=== PATIENT | male | born 1950 | race Caucasian/White ===

== ENCOUNTER 2024-07-04 06:08 | Day surgery (SDC) | payer OTHER, SELFPAY ==
[2024-06-17 11:11] LABS: Hematocrit 42.4 % (39.0-52.0); Hemoglobin 14.4 g/dL (13.0-18.0); Mean Corpuscular Hgb 30.1 pg (27.0-31.0); Mean Corpuscular Volume 88.5 fL (80.0-94.0); Mean Platelet Volume 10.7 fL (7.4-10.4); Platelet Count 201 10^3/uL (130-400); Red Blood Cell Count 4.79 10^6/uL (4.70-6.10); Red Cell Dist. Width 12.4 % (11.5-14.5)
[2024-06-17 11:35] LABS: ALT (SGPT) 21 U/L (0-50); AST (SGOT) 25 U/L (17-59); Alkaline Phosphatase 125 U/L (38-126); Blood Urea Nitrogen 24 mg/dl (9-20); Carbon Dioxide 28 mmol/L (22-30); Chloride 102 mmol/L (98-107); Glucose 102 mg/dl (70-99); Potassium 4.3 mmol/L (3.5-5.1); Sodium 138 mmol/L (135-145); Total Bilirubin 0.7 mg/dl (0.2-1.3); Total Protein 6.7 g/dl (6.3-8.2); eGFR > 60.00
[2024-06-17 12:02] LABS: Glycohemoglobin (HgbA1c) 5.6 % (4.0-5.6)
[2024-06-17 13:49] VITALS: BMI 36.5
--- NOTE | 2024-06-20 10:45 | VNURNOTE ---
Patient is scheduled for an elective R THR on 07/04/24- he is a same day patient with Dr Araya. Spoke with patient prior to surgery. Introduced role of [facility] Liaison. Patient reports that he lives with his in a MULTI story home.
There are 5 steps to enter and a flight of steps to the second floor.
There is a powder room on the entry tech. He has a cane and rolling walker.
PCP is Dr Moncada.
Discussed [facility] joint protocol and post surgical plans.
Reviewed that he will have [facility] services initially and will then start outpatient PT.
Patient selects VN for his home care needs and will go to [facility] for outpatient PT. Scheduled for 07/07.
Patient is in agreement with plan and states that his will be home with him. His neighbor will pick him up day of surgery. Advised to bring RW with him day of surgery. [facility].
Plan: [facility] per [facility] joint protocol 07/04 then outpt PT on 07/07
[2024-06-23 13:34] VITALS: BMI 36.5
[2024-07-04] VITALS (13 sets, daily range): BP systolic 111–168; BP diastolic 68–103; PULSE 97; O2SAT 99; BMI 37.9
[2024-07-04] MEDS: TYLENOL 650 MG PO (07:48)
[2024-07-04] MEDS: CELEBREX 200 MG PO (07:48)
[2024-07-04] MEDS: BACTROBAN NASAL 1 GRAM NASAL (07:56)
[2024-07-04] MEDS: NORMOSOL-R/PLASMALYTE-A 1000 IV (08:17)
[2024-07-04] MEDS: ANCEF 5 IV (13:35)
== END 2024-07-04 14:12 | disposition home health service (06) ==
LOC: SDS 06:08
PROVIDERS: ATTENDING PHYSICIAN Specialist; FAMILY PHYSICIAN Family Medicine
DX: M16.11 Unilateral primary osteoarthritis, right hip (principal); E66.9 Obesity, unspecified; E53.8 Deficiency of other specified B group vitamins; G47.33 Obstructive sleep apnea (adult) (pediatric); Z68.36 Body mass index [BMI] 36.0-36.9, adult; Z87.891 Personal history of nicotine dependence; Z88.5 Allergy status to narcotic agent
CPT/HCPCS: 27130; 73502; 36415; 80053; 83036; 85027; 87070; 93005; 97162; 97530; C1713; C1776

== ENCOUNTER 2024-11-03 19:10 | Observation (INO) | payer OTHER, SELFPAY ==
[2024-11-03 13:43] VITALS: BP 160/90
[2024-11-03 14:10] VITALS: BP 152/83
[2024-11-03 14:55] LABS: % Basophils 0.2 % (0-2); % Eosinophils 2.9 % (0-6); % Immature Granulocytes 0.1 % (0-0.5); % Lymphocytes 21.4 % (20.5-51.1); % Monocytes 7.9 % (1.7-9.3); % Neutrophils 67.5 % (42.2-75.2); Absolute Eosinophils 0.2 10^3/uL (0-0.7); Absolute Lymphocytes 1.8 10^3/uL (1.2-3.4); Absolute Monocytes 0.7 10^3/uL (0.1-0.6); Absolute Neutrophils 5.7 10^3/uL (1.4-6.5); Hematocrit 38.8 % (39.0-52.0); Hemoglobin 13.5 g/dL (13.0-18.0); Mean Corp Hgb Conc. 34.8 g/dL (33.0-37.0); Mean Corpuscular Volume 83.4 fL (80.0-94.0); Mean Platelet Volume 10.5 fL (7.4-10.4); Nucleated Red Blood Cells % 0 % (-); Platelet Count 188 10^3/uL (130-400); Red Blood Cell Count 4.65 10^6/uL (4.70-6.10); Red Cell Dist. Width 12.3 % (11.5-14.5); White Blood Cell Count 8.4 10^3/uL (4.8-10.8)
[2024-11-03 15:00] VITALS: BP 133/78
[2024-11-03 15:27] LABS: ALT (SGPT) 15 U/L (0-50); AST (SGOT) 21 U/L (17-59); Albumin 3.7 g/dl (3.5-5.0); Alkaline Phosphatase 105 U/L (38-126); Blood Urea Nitrogen 20 mg/dl (9-20); Calcium 8.9 mg/dl (8.4-10.2); Carbon Dioxide 24 mmol/L (22-30); Chloride 109 mmol/L (98-107); Glucose 163 mg/dl (70-99); Potassium 4.2 mmol/L (3.5-5.1); Sodium 141 mmol/L (135-145); Total Bilirubin 0.6 mg/dl (0.2-1.3); Total Protein 6.3 g/dl (6.3-8.2); eGFR > 60.00
[2024-11-03 16:00] VITALS: BP 150/78
--- NOTE | 2024-11-03 16:12 | ED.CVA ---
History of Present Illness
General
Chief Complaint: CVA/TIA Symptoms
Source: patient and spouse
Exam Limitations: none
Time Seen by Provider: 11/03/24 14:49
Nursing documentation reviewed up to this point in time: agreed with
Onset of Stroke Symptoms
Onset of symptoms known: Yes
Date of onset of symptoms: 10/31/24
History of Present Illness
History of Present Illness:
74-year-old male with history of right hip replacement 07/19, no other past medical history, takes no meds, he is here for episode of weakness left side.
4 days ago he was pulling weeds with his left arm. At night he went to bed feeling fine, he awoke at 1 AM feeling numbness from his left shoulder to his fingers and down his left side to and including his toes. He fell back asleep.
Next morning 7 AM he could not move in bed due to weakness and numbness of his entire left side, he had a shoe made to the right side of the bed to get up. He was able to walk downstairs dragging his left foot due to weakness in his left leg
and used his cane that he had leftover from his right hip surgery. He states when he lifted the cane with his left hand, it felt like it weighed 20 pounds. He states he also 'could not walk and could not lift my left foot up.'
Half hour later at 7:30 AM, all of his symptoms suddenly resolved.
2 days ago at 1 AM he had a similar episode, he got out of bed to go to the bathroom had trouble walking to the left leg and foot and arm weakness, had to hold onto things to walk and then after about 10 minutes symptoms suddenly resolved. He
went back to sleep
Yesterday he was fine all day.
He attributed his symptoms to his body 're aligning and learning to walk normally' after his hip surgery.
Today is asymptomatic but he 'Googled' his symptoms and 'I found the word stroke' and that's what prompted him to come here.
Past History
Past History
ED Past Medical History: None
ED Past Surgical History: Urological
Social History
Tobacco: Non-smoker
Alcohol: Occasional
Personal:
Living: with family
Employment: Employed
Review of Systems
Review of Systems
Allergies reviewed?: Yes
All Other Systems: ROS reviewed and negative except as documented in HPI and ROS
Constitutional: Denies fever or fatigue
Respiratory: Denies trouble breathing
Cardiac: Denies chest pain or syncope
ABD/GI: Denies abdominal pain, nausea, vomiting or diarrhea
: Denies dysuria, incontinence or difficulty voiding
Musculoskeletal: Reports no symptoms; Denies edema
Skin: Reports no symptoms
Neurological: Reports other (As noted in HPI, asymptomatic at this time.)
Phy Exam
Physical Exam
Physical Exam:
GENERAL: No acute distress. A&Ox3.
CONSTITUTIONAL: Afebrile.
EYES: clear, conjunctivae normal
ENMT: moist mucus membranes, Pharynx nl
RESPIRATORY: Regular respirations, nonlabored, lungs clear.
CARDIOVASCULAR: Regular rate and rhythm, no murmurs, no rubs.
GI: Soft, nontender, normal BS
MUSCULOSKELETAL: Moves with ease. Well perfused.
SKIN: Warm, dry, pink
PSYCH: Normal mood and affect. Well kept, interactive and appropriate
NEUROLOGIC: Awake, alert and oriented. Speech clear. Cranial nerves II through XII intact. Cerebellum intact. No focal neurological deficits
Scores
NIH Stroke Score
Level of Consciousness: 0 - Alert
LOC Questions: 0-Answers both correctly
LOC Commands: 0-Performs both correctly
Best Horizontal Gaze: 0-Normal
Visual Weber: 0=Normal, no visual loss
Facial Palsy: 0=Normal, symmetrical
Motor - Right Arm: 0=No drift 10 seconds
Motor - Left Arm: 0=No drift 10 seconds
Motor - Right Le-No drift 5 seconds
Motor - Left Le-No drift 5 seconds
Limb Ataxia: 0-Absent
Sensation: 0-Normal
Best Language: 0-No aphasia
Dysarthria: 0-Normal
Extinction and Inattention: 0-No abnormality
NIH Total Score:: 0
Course
Orders/Labs/Results
Orders:
Orders
11/03/24 13:47
EKG [Electrocardiogram (*1)] Urgent
Reason for Study: Tachycardia
EKG- Treatment ONCE
11/03/24 14:47
CMP [Comprehensive Metabolic Panel] Urgent
Complete Blood Count/With Diff Urgent
11/03/24 14:51
CT Head W/o Iv Contrast Urgent
Comment:
Reason For Exam: numb L arm and leg past 3 days
Abnormal Lab Results
11/03/24
14:47
RBC 4.65 L 10^6/uL
(4.70-6.10)
Hct 38.8 L %
(39.0-52.0)
MPV 10.5 H fL
(7.4-10.4)
Absolute Monos (auto) 0.7 H 10^3/uL
(0.1-0.6)
Chloride 109 H mmol/L
(98-107)
Glucose 163 H mg/dl
(70-99)
11/03/24 14:47
11/03/24 14:47
Vital Signs
Initial and Last Documented VS:
Initial Vital Signs
Temp Pulse Resp BP Pulse Ox
98.0 F 111 20 160/90 97
11/03/24 13:43 11/03/24 13:43 11/03/24 13:43 11/03/24 13:43 11/03/24 13:43
Last Documented Vital Signs
Temp Pulse Resp BP Pulse Ox
98.0 F 91 19 150/78 97
11/03/24 13:43 11/03/24 17:45 11/03/24 17:45 11/03/24 16:00 11/03/24 17:45
Websphere Administrator consulted with Physician
Websphere Administrator consulted with physician?: Yes
Name of Physician Consulted: Vincenzo
MDM/Problems Addressed
Differential Diagnosis Includes:
CVA, TIA,
MDM/Problems Addressed:
74-year-old male with history of right hip replacement 07/19, no other past medical history, takes no meds, he is here for episode of weakness left side.
4 days ago he was pulling weeds with his left arm. At night he went to bed feeling fine, he awoke at 1 AM feeling numbness from his left shoulder to his fingers and down his left side to and including his toes. He fell back asleep.
Next morning 7 AM he could not move in bed due to weakness and numbness of his entire left side, he had a shoe made to the right side of the bed to get up. He was able to walk downstairs dragging his left foot due to weakness in his left leg
and used his cane that he had leftover from his right hip surgery. He states when he lifted the cane with his left hand, it felt like it weighed 20 pounds. He states he also 'could not walk and could not lift my left foot up.'
Half hour later at 7:30 AM, all of his symptoms suddenly resolved.
2 days ago at 1 AM he had a similar episode, he got out of bed to go to the bathroom had trouble walking to the left leg and foot and arm weakness, had to hold onto things to walk and then after about 10 minutes symptoms suddenly resolved. He
went back to sleep
Yesterday he was fine all day.
He attributed his symptoms to his body 're aligning and learning to walk normally' after his hip surgery.
Today is asymptomatic but he 'Googled' his symptoms and 'I found the word stroke' and that's what prompted him to come here.
4:00 PM:
CBC unremarkable
CMP unremarkable head
CT: Radiology report read: No acute intracranial abnormality.
Case discussed with Dr. Loya. Concern for multiple TIAs plan admit: Patient and agree with plan, hospitalist notified of admission
*Critical Care Note
Total Time (30-74mins, 75-104mins- exclusive of procedures): Not Applicable
ED Attending Note
-
Portions of this chart may have been created with voice recognition software.� Occasional wrong word or��sound alike� substitutions may have occurred due to the inherent limitations of voice recognition software.
Discharge Plan
Departure
Patient Disposition: Admit
Date of Disposition: 11/03/24
Time of Disposition: 16:26
Admit to: Med/Surg
Presentation/result/management discussed w/ accepting MD/DO: Hospitalist
Condition: Good
Discharge Problem:
Brain TIA
Prescriptions:
No Action
aspirin 81 mg Tablet
81 mg PO DAILY
Patient Comments:
occasionally uses
Referrals:
Delroy Stallworth MD [Family Provider, Family Practice]
Interventions
Interventions:
*Risk Screen - Suicide Last Done: 11/03/24 13:43
*General Assessment Last Done: 11/03/24 13:43
*Neglect/Abuse Screening Last Done: 11/03/24 13:43
*ED- Fall Risk Assessment Last Done: 11/03/24 14:34
*ED COVID-19 Vaccine History Last Done: 11/03/24 14:34
ED- Pulmonary Assessment Last Done: 11/03/24 14:31
ED- Neurological Assessment Last Done: 11/03/24 14:31
ED- Cardiac Assessment Last Done: 11/03/24 14:31
Discharge Date and Time
Print Language: CITIZEN OF [place]
--- NOTE | 2024-11-03 17:18 | W.PN.UPDATE ---
Update Note
Progress Note Update
I personally performed a history and physical exam of the patient and discussed management with the resident. I reviewed the resident's note and agree with the documented findings and plan of care HPI/CC.
Patient is a 74-year-old male with past medical history of osteoarthritis status post right THR, obesity, former smoker came to ER for having left-sided upper extremity and lower extremity weakness and numbness. Symptoms first happen 3 days back
when patient woke up wgith left-sided arm and leg weakness and numbness. In the morning apparently patient weakness persisted and was having difficult time getting around. Denied any speech changes/facial droopiness or slurring of words. This
resolved spontaneously. Apparently 2 days back patient had somewhat of similar episode while walking to the bathroom and resolved by itself as well. Patient presented to the ER for further evaluation for concern of possible TIA.
Patient denies of having any previous history of TIA/stroke. Patient's spouse started patient on baby aspirin and has been taking it for last 3 days. Patient have some history of palpitation with activity although denies of feeling irregular beats
at rest. Has been former smoker. Have not seen family physician and not been diagnosed for hyperlipidemia/prediabetes.
HEENT: No pallor, cyanosis, or jaundice. Throat clear.
NECK: Supple. No JVD.
RESPIRATORY: Lungs clear to auscultation.
CVS: S1, S2 normal. RRR. No murmur, rub or gallop.
ABDOMEN: Soft, non-tender. No distension. BS+/normal.
EXTREMITIES: No peripheral cyanosis or edema.
SHIPPING CLERK CRATING: AOx3. No focal deficits.
1. TIA x 2
- 2 episodes of TIA based on clinical presentation
- CT head neg for any acute issues
- Ordered baby aspirin, maintain start atorvastatin 40 mg daily as
- Check lipid profile/hemoglobin A1c-
- check MRI brain without contrast , MRA head and neck
- Will require TTE with bubble study to rule out ASD
- Monitor on telemetry, will benefit with ambulatory rhythm monitoring as well
- Neurology consult
2. Obesity
- Affects all aspects of care, weight loss recommended
DVT PPX -scd
Full code
Total time spent : 77 mins
I personally saw and examined the patient.
I have reviewed all diagnostic interpretations and treatment plans as written.
Time includes patient management by me, time spent at the patients bedside, time to review lab and imaging results, discussing patient care, documentation in the medical record, and time spent with the family or caregiver and discussing care plan
with RN/Consultants.
--- NOTE | 2024-11-03 18:44 | HPS.HSE ---
Family Physician
-
Family Physician: Delroy Stallworth
Cardiologsit: Dr. Donald
Chief Complaint
-
TIA SX
History of Present Illness
Gabe Larose is a 74-year-old male with a past medical history of osteoarthritis status post right total hip replacement, obesity, vitamin B12 deficiency, former tobacco use (approximately 40-iwuq-rjmx history, quit 35 years ago) who presented to
the emergency department for transient left upper and left lower extremity weakness. Patient states that 3 days ago, at around 0100, the patient woke from sleep and noticed that his left upper and left lower extremity were weak. Patient states
that this episode lasted approximately 15 minutes. After resolution of symptoms, patient went back to sleep and then woke up the next morning without any symptoms. Patient had a normal day, and then the following night, patient woke up at around
the same time to go to the bathroom. Patient was able to get out of bed, walk to the bathroom, go to the bathroom, walk back from the bathroom, and get back in bed. However, at this time the patient started to feel the same symptoms that he felt
the night before. This time the symptoms lasted approximately 5 minutes. The symptoms went away and then the patient return to sleep. The next morning the patient woke up without any symptoms, and had a normal day again. Yesterday and today,
patient had no symptoms. It was only after Googling the symptoms that the patient decided that he should come to the emergency department.
Patient endorses working in the garden the day before the first episode, pulling weeds with his left arm and using his left leg for leverage since he could not use the right side of his body secondary to his recent right total hip replacement.
Patient denied any neck pain, back pain, radiculopathy preceding these last few days. During the events, patient only noticed a weakness from the shoulder down to the hand and the hip down to the feet. Patient states that he was able to move his
fingers and toes during these episodes. Patient denied having any numbness or tingling of the affected extremities during these episodes. Patient also denies any chest pain, shortness of breath during or preceding these episodes. Patient denies
any recent vision changes or sudden onset loss of vision. Patient notes a history of subjective palpitations that are chronic. Patient also notes that he will occasionally get dizzy for the past few months, however this symptom is not reliably
related to exertion, movement, or position changes. Patient attributes this to his allergies. Patient's is at bedside and denies any personality changes, facial droop, slurred speech during the above-mentioned episodes.
Medical History
Past Medical History
Past Medical History: Reports Other
Additional Past Medical History:
Osteoarthritis, obesity, tobacco use
Past Surgical History: Reports Other
Additional Past Surgical History:
Right total hip replacement, urologic surgery
Social History
Tobacco: Former Smoker (Started at age 11, quit 35 years ago at age 39, 1 to 2 pack/day during this time)
Alcohol: None
Drug: None
Personal:
Living: With Family
Employment: Retired
Family History
Family History: Not pertinent
Allergies / Home Medications
Allergies reflects when Allergies were last updated in [facility].
Home Medications with original date entered in [facility]
Allergy/Medication List:
Allergies: Codeine�drowsy
ASA 81 mg, started 3 days ago after symptoms at request of
Fluticasone as needed for allergy
Review of Systems
-
History Source: Patient
A 12 point ROS was completed and negative except as noted: Yes
Physical Exam
Vital Signs
Vital Signs
Temp Pulse Resp BP Pulse Ox
98.0 F 83 19 150/78 96
11/03/24 13:43 11/03/24 18:30 11/03/24 17:45 11/03/24 16:00 11/03/24 18:30
Physical Exam
General: Well Developed, Well Nourished, No Apparent Distress, Comfortable and Conversant
HEENT: NormoCephalic, Anicteric, Atraumatic, PERRLA and Other (Extraocular motions intact, cranial nerves II through XII grossly intact)
Respiratory: Clear and Non Labored Respirations; No Wheezes, Rales, Rhonchi or Crackles
Cardiac: S1/S2 and Regular Rhythm; No Murmur
GI: Soft
Musculoskeletal: No Clubbing, No Cyanosis and No Edema
Skin: Warm and Dry
Neuro: Awake, Alert, Oriented, No Motor Deficits, Cranial Nerves Intact and No Sensory Deficits; No Slurred Speech, Facial Droop or Tremors
Psych: Calm
Laboratory Results
-
11/03/24 14:47
11/03/24 14:47
Laboratory Results
Total Bilirubin 0.6 mg/dl (0.2-1.3) 11/03/24 14:47
AST 21 U/L (17-59) 11/03/24 14:47
ALT 15 U/L (0-50) 11/03/24 14:47
Alkaline Phosphatase 105 U/L (38-126) 11/03/24 14:47
Data Reviewed
-
CT Scan: Image Personally Visualized and interpreted, Report Reviewed by me and Discussed with Patient
Lab Data: Labs Reviewed by me and Discussed with Patient
Impression/Plan
-
1. TIA x 2
- 2 episodes of TIA 3 days ago and 2 days ago, based on history
- CT Head w/o contrast (11/03) - ED: No acute intracranial abnormality noted.
- Start ASA 81 mg, Lipitor 40mg daily
- Check lipid profile/hemoglobin A1c
- Check MRI brain without contrast , MRA head and neck
- TTE w/ Bubble Study
- Monitor on telemetry, will benefit with ambulatory rhythm monitoring as well
- Neurology consult
- BP Control (see below)
- NIH Stroke Scale q6h
2. Obesity
- Affects all aspects of care, weight loss recommended
3. Hypertension
- Start Losartan 25mg PO daily
- Labetalol IV PRN SBP >160
DVT PPX -scd
Full code
[2024-11-03 20:10] VITALS: BP 152/89; BMI 37.5
--- NOTE | 2024-11-03 20:30 | PTCARENOTE ---
Pt transported from ED to 3W via wheelchair. Pt independent from wheelchair to bed. AAOX3, vitals stable, pt on TELE monitor #9. Oriented to room, call biggs within reach. Pleasant and cooperative.
[2024-11-03] MEDS: LIPITOR 40 MG PO (21:22)
[2024-11-03 23:14] VITALS: BP 135/94
[2024-11-04 03:30] VITALS: BP 134/79
[2024-11-04 05:49] LABS: Hematocrit 39.1 % (39.0-52.0); Hemoglobin 13.6 g/dL (13.0-18.0); Mean Corp Hgb Conc. 34.8 g/dL (33.0-37.0); Mean Corpuscular Hgb 29.2 pg (27.0-31.0); Mean Corpuscular Volume 84.1 fL (80.0-94.0); Mean Platelet Volume 10.2 fL (7.4-10.4); Platelet Count 183 10^3/uL (130-400); Red Blood Cell Count 4.65 10^6/uL (4.70-6.10); Red Cell Dist. Width 12.2 % (11.5-14.5); White Blood Cell Count 8.2 10^3/uL (4.8-10.8)
[2024-11-04 06:19] LABS: Blood Urea Nitrogen 17 mg/dl (9-20); Carbon Dioxide 27 mmol/L (22-30); Chloride 110 mmol/L (98-107); Estimated Creatinine Clearance 72 ml/min; Glucose 107 mg/dl (70-99); HDL Cholesterol 38 mg/dl; LDL Cholesterol, Calculated 80 mg/dl; Potassium 4.3 mmol/L (3.5-5.1); Sodium 142 mmol/L (135-145); Total Cholesterol 138 mg/dl (50-199); Triglyceride 100 mg/dl (10-149); Very Low Density Lipoprotein 20 mg/dl (0-30); eGFR > 60.00
[2024-11-04 07:00] VITALS: BP 152/84
--- NOTE | 2024-11-04 07:22 | W.PN.HOSP.TC ---
Today's Communication/Plan
-
.
Assessment / Plan
Assessment / Plan
1. TIA x 2
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
- CT Head w/o contrast (11/03) - ED: No acute intracranial abnormality noted.
- MRI/MRA unable to be done 2/2 patient claustrophobia
- CTA Head:
- CTA Neck:
- Start ASA 81 mg, Lipitor 40mg daily
- TG 100 TC 138 LDL 80 VLDL 20 HDL 38
- Hemoglobin A1c = 5.9
- Per neuro and rads, TTE w/ Bubble Study not to be performed in age > 60
- Monitor on telemetry, will benefit with ambulatory rhythm monitoring as well
- Appreciate Neuro recommendations
- BP Control (see below)
- NIHSS 0 throughout admission
2. Obesity
- Affects all aspects of care, weight loss recommended
3. Hypertension
- Start Losartan 25mg PO daily
- Labetalol IV PRN SBP >160
DVT PPX -scd
Full code
Anticipated Discharge: Today
Subjective/Interval History
-
Date of Service: November 04, 2024
Patient seen and examined while resting comfortably in bed, just gotten up from sleep this AM. States that he slept well and did not experience any events over night. Feeling well and no acute complaints.
Objective Data
-
Labs:
Laboratory Results
11/04/24
05:27
WBC 8.2
Hgb 13.6
Hct 39.1
Plt Count 183
Sodium 142
Potassium 4.3
Chloride 110 H
Carbon Dioxide 27
BUN 17
Creatinine 1.0
Glucose 107 H
Calcium 9.0
Vital Signs:
Vital Signs
Temp Pulse Resp BP Pulse Ox
97.6 F 74 16 134/79 97
11/04/24 03:30 11/04/24 03:30 11/04/24 03:30 11/04/24 03:30 11/04/24 03:30
Review of Systems
-
History Source: Patient
Constitutional: Reports No Symptoms
Respiratory: Reports No Symptoms
Cardiac: Reports No Symptoms
Neuro: Reports No Symptoms
Physical Exam
-
General: Well Developed, Well Nourished, No Apparent Distress, Comfortable and Conversant
HEENT: Normocephalic and Atraumatic
Respiratory: Clear to Auscultation; Negative Wheezes, Rales or Rhonchi
Cardiac: Regular Rhythm and S1/S2
GI: Soft
Musculoskeletal: No Clubbing, No Cyanosis and No Edema
Skin: Warm and Dry
Neuro: Awake, Alert, Oriented, No Motor Deficits, Nonfocal/Grossly Intact and Central Nerve's Intact; Negative Slurred Speech or Facial Droop
Psych: Calm
Data Reviewed
-
Labs: Labs Reviewed by me and Discussed with Patient
[2024-11-04] MEDS: LOW STRENGTH ASPIRIN 81 MG PO (08:27)
--- NOTE | 2024-11-04 08:41 | CON.NEURO4 ---
Addendum entered and electronically signed by Iban Hankins MD 11/04/24 12:41:
Studies reviewed.
I have personally examined the patient. I reviewed and agree with the REGULATED PROGRAM MANAGER's Note.
My addenda:
Awake, alert, interactive. No acute distress.
Speech intact.
Follows 2-step requests w/o difficulty. No tremor.
Extra-ocular movements grossly intact.
Facial movements full and symmetric. Hearing intact to normal conversational volume.
Normal UE movements bilaterally.
Neck: full ROM.
Chest: no dyspnea
Heart: no JVD
Ext: (-) Clubbing, (-) Cyanosis, (-) Edema
IMPRESSIONS/RECOMMENDATIONS:
Abrupt onset of recurrent episodes of left-sided weakness of unclear etiology. Differential diagnosis includes TIA
Patient unable to complete MRI due to claustrophobia.
Check CTA head and neck for possible stenosis
Outpatient diagnostic sleep study to confirm that there is no sleep abnormality producing symptomatology
Continue newly initiated aspirin 81 mg daily
Continue newly initiated atorvastatin 40 mg daily
D/W patient
Will continue to follow as needed.
Original Note:
Documented by User: Whitney Turpin NP 11/04/24 10:37
Consultation - Neurology 4
-
CONSULTING PHYSICIAN: Iban Hankins MD
REFERRING PHYSICIAN: Hospitalists/Dr. Kalen MD Resident
DICTATED BY: KESHIA Squires
DATE/TIME OF REQUEST: 11/03/24
DATE/TIME OF CONSULTATION: 11/04/24
Reason for Consultation: Transient left-sided weakness
History of Present Illness:
This is a 74-year-old right-handed male who has presented to the hospital on 11/03/24 with report of transient left-sided weakness. Patient reports that five days ago on 10/30/24 he spent several hours outside gardening/pulling weeds. He woke from
sleep early in the morning on 10/31/24 to use the bathroom and his entire left arm and leg felt very weak and heavy. This resolved after 15 minutes. He proceeded to go back to bed and when he awoke in the morning he was in his usual state. The
following night 11/01/24 he reports having a similar episode in the middle of the night, this time lasting 5 minutes before resolving. He decided to start taking aspirin 81mg due to the recurrence of symptoms. Yesterday (11/03/24), he was 'Googling'
his symptoms and decided he should come to the ER for evaluation. CT head was obtained on arrival and is negative for any acute abnormalities. He denies any headache, dizziness, vision changes, speech/swallow difficulty, and numbness. He notes
chronic tension in his neck. He also having a R THR in June 2024. His right hip had been arthritic for decades and his normal gait used to be a 'sideways shuffle,' since surgery he has been working to normalize his gait. He denies any history of
TIA, stroke, or events like this in the past.
Past Medical History: Osteoarthritis, vitamin B12 deficiency, obesity
Surgical History: R THR, urologic surgery.
Family History: Reviewed and noncontributory.
Social History: Rare alcohol. Former smoker. Denies illicit drug use.
Allergies: Codeine.
Home Medications: See below.
Review of Symptoms:
Patient denies any fever, headache, chest pain, shortness of breath, GI or symptoms.
�Per the HPI.�All systems are reviewed negative except above.
Physical Exam:
The patient is afebrile, abdomen is nondistended, breathing is unlabored, skin is warm and dry, no edema.
NIH Stroke Scale:
I performed the NIH stroke scale on the patient on 11/04/24 at 0845. The patient scored 0 points on the NIH stroke scale assessment, which were assigned as follows: See below.
Neurologic Examination:
The patient is awake, alert and oriented x 3. He is able to follow commands and answer questions appropriately. There is no aphasia or dysarthria. On cranial nerve assessment, pupils are 3 mm bilateral, round and reactive to light and
accommodation. Visual weber are full. Extraocular movements are intact. Facial sensations are intact and bilaterally symmetrical, there is no facial asymmetry. Hearing is intact bilaterally to normal conversation volume. Tongue palate and uvula are
midline. Sternocleidomastoid strengths are full bilaterally. Motor strengths are 5/5 bilateral upper and lower extremities on medical research [place] scale. There is no drift or involuntary movement noted. Deep tendon reflexes are 2+ bilateral
upper and lower extremities and Babinski is absent bilaterally. There was no extinction noted on double simultaneous stimulation. Coordination is intact by finger to nose bilaterally.
Lab Results: See below.
Neuro Imaging:
1. CT Head 11/03/24: No acute intracranial abnormality noted.
Differentials for the patient's presentation include:
1. TIA possibly producing transient left-sided weakness. Need to rule out large vessel stenosis contributing to symptoms.
2. Unable to complete MRI brain due to severe claustrophobia. Small stroke possible but less likely given full resolution of symptoms, twice.
Patient has the following risk factors for their symptoms: age, htn
IV Tenecteplase/IAT candidacy: Not a candidate due to resolution of symptoms, outside of time window.
Recommendations:
-Continue aspirin 81mg daily.
-CTA head/neck pending.
-Patient offered sedation for MRI, does not wish to have this study due to severe claustrophobia.
-May benefit from an outpatient sleep study to rule out sleep abnormality contributing to symptoms.
-Goal normotension.
-LDL goal <70. LDL is 80. Continue newly initiated atorvastatin 40mg daily.
-Goal normoglycemia, hbA1c is 5.6.
-NIHSS and neurological checks per unit guidelines.
-Provide patient with a stroke education packet.
-DVT prophylaxis.
Discussed patient care with: Dr. Hankins, the patient
Vital Signs and Labs
-
Vital Signs and Labs:
Vital Signs
Temp Pulse Resp BP Pulse Ox
97.6 F 68 18 152/84 97
11/04/24 07:00 11/04/24 07:00 11/04/24 07:00 11/04/24 07:00 11/04/24 07:00
Lab Results
11/04/24 05:27
11/04/24 05:27
Sodium 142 mmol/L (135-145) 11/04/24 05:27
Potassium 4.3 mmol/L (3.5-5.1) 11/04/24 05:27
BUN 17 mg/dl (9-20) 11/04/24 05:27
Glucose 107 mg/dl (70-99) H 11/04/24 05:27
Calcium 9.0 mg/dl (8.4-10.2) 11/04/24 05:27
LDL Cholesterol, Calc 80 mg/dl 11/04/24 05:27
Medications
-
Active Medications
Generic Name Dose Route Start Last Admin
Trade Name Freq PRN Reason Stop Dose Admin
Aspirin 81 mg 11/04/24 08:00 11/04/24 08:27
Aspirin 81 Mg Chewable Tablet PO 12/02/24 07:59 81 mg
DAILY KARINA Administration
Atorvastatin Calcium 40 mg 11/03/24 20:10 11/03/24 21:22
Atorvastatin (Lipitor) 40 Mg Tablet PO 12/01/24 20:09 40 mg
QPM KARINA Administration
Bisacodyl 10 mg 11/03/24 20:10
Bisacodyl 10 Mg Rectal Suppository RECTAL 12/01/24 20:09
[id number] PRN
constipation
Enoxaparin Sodium 40 mg 11/04/24 18:00
Enoxaparin Sodium 40 Mg/0.4 Ml Syringe SC 12/02/24 17:59
QPM KARINA
Labetalol HCl 10 mg 11/03/24 20:10
Labetalol Hcl 5 Mg/1 Ml (20 Mg/4 Ml) Injection IV 12/01/24 20:09
Q6HPRN PRN
SBP > 160
Losartan Potassium 25 mg 11/04/24 20:00
Losartan 25 Mg Tablet PO 12/02/24 19:59
DAILY KARINA
Polyethylene Glycol 17 grams 11/03/24 20:10
Polyethylene Glycol Powder 17 Grams Packet PO 12/01/24 20:09
DAILYPRN PRN
constipation
Senna/Docusate Sodium 1 tablet 11/03/24 20:10
Docusate W/Senna (Samra-Colace) Tablet PO 12/01/24 20:09
BIDPRN PRN
constipation
Sodium Chloride 0 flush 11/03/24 21:00
Sodium Chloride 0.9% (Flush) Syringe IV 12/01/24 20:59
PER PROTOCOL KARINA
Home Medications
�Medication �Instructions �Recorded
aspirin 81 mg tablet 81 mg PO DAILY Blood Clot 11/03/24
Prevention/Tx
NIH Stroke Score
Subsequent NIH Scale
Date of Subsequent NIH Scale: 11/04/24
Time of Subsequent NIH Scale: 08:45
NIH Stroke Score
Level of Consciousness: 0 - Alert
LOC Questions: 0-Answers both correctly
LOC Commands: 0-Performs both correctly
Best Horizontal Gaze: 0-Normal
Visual Weber: 0=Normal, no visual loss
Facial Palsy: 0=Normal, symmetrical
Motor - Right Arm: 0=No drift 10 seconds
Motor - Left Arm: 0=No drift 10 seconds
Motor - Right Le-No drift 5 seconds
Motor - Left Le-No drift 5 seconds
Limb Ataxia: 0-Absent
Sensation: 0-Normal
Best Language: 0-No aphasia
Dysarthria: 0-Normal
Extinction and Inattention: 0-No abnormality
NIH Total Score:: 0
Modified Glenny (mRS) Score
Modified [place]enny Scale (mRS): No symptoms
Score: 0

Documented by User: Iban Hankins MD 11/04/24 12:36
NIH Stroke Score
NIH Stroke Score
NIH Total Score:: 0
Modified [place] (mRS) Score
Score: 0
[2024-11-04 09:01] LABS: Glycohemoglobin (HgbA1c) 5.6 % (4.0-5.6)
[2024-11-04 11:00] VITALS: BP 146/81
--- NOTE | 2024-11-04 13:01 | W.PN.UPDATE ---
Update Note
Progress Note Update
I saw and evaluated the patient. I reviewed the resident�s note and agree with findings and plan as documented in the resident�s note.
1. TIA x 2
- 2 episodes of TIA based on clinical presentation
- CT head neg for any acute issues
- Ordered baby aspirin, maintain start atorvastatin 40 mg daily as
- Lipid profile within normal limit. A1c of 5.6
- Patient could not get MRI as claustrophobic. Neurology recommended against need of echocardiogram/bubble study
- CTA head and neck pending
- Neurology consult
2. Obesity
- Affects all aspects of care, weight loss recommended
DVT PPX -scd
Full code
Possible home discharge after CTA head and neck
[2024-11-04 16:00] VITALS: BP 137/84
--- NOTE | 2024-11-04 16:57 | W.DCSUMMARY ---
Discharge Summary
Discharge Data
Date of Admission: 11/03/24
Date of Discharge: 11/04/24
Total time spent discharging patient (in min): 31
-
Pending Results: No
Hospital Course
Gabe Larose is a 74-year-old male with a past medical history of osteoarthritis status post right total hip replacement, obesity, vitamin B12 deficiency, former tobacco use (approximately 04-bgoi-lsne history, quit 35 years ago) who presented to
the emergency department for transient left upper and left lower extremity weakness. Episodes occured in the middle of the night and resolved spontaneously after lasting 5 minutes. After resolution of symptoms, patient would return to sleep, and
wake up normally the next morning. Patient presented to the emergency department 2 days after the last episode, after looking up his symptoms on [employer].
ED COURSE
At presentation to the emergency department, patient's NIH stroke score was 0 and the patient had a completely benign physical exam (including neurologic exam). Laboratory studies were unremarkable. Patient's blood pressure was elevated to 160/90.
A CT of the head without contrast found no acute intracranial abnormalities. The patient was admitted for observation and workup.
HOSPITAL COURSE
The patient was started on aspirin 81 mg and Lipitor 40 mg daily. A lipid profile showed a total cholesterol of 138 and an LDL of 80. Hemoglobin A1c was 5.7. Additionally, patient was started on losartan 25 mg daily for the hypertension. Patient
was monitored on telemetry with no signs of arrhythmias. The patient did not tolerate MRI or MRA due to claustrophobia, thus CT angiogram radiology studies were ordered. The studies did not show evidence for high-grade stenosis or occlusion of the
arterial vasculature in the head or neck. A new neurology consult was called and they were in agreement with these recommendations. Additionally they recommended against the need of an echocardiogram or bubble study secondary to age. The patient
was discharged home on 11/04/2024.
DISCHARGE RECOMMENDATIONS
Patient should follow-up with his primary care provider in less than 1 week for additional recommendations.
Patient should continue to take aspirin 81 mg daily for primary prevention of thrombotic disease.
Patient was started on Lipitor 40 mg daily. The patient can continue to take this medication until he follows up with his primary care provider. Patient's age is at the cusp of guideline recommendations, and thus he was advised to have a
follow-up conversation with his primary care provider in order to reach a shared decision on whether statin therapy is appropriate for him.
Patient was started on losartan 25 mg daily for blood pressure control. Follow-up blood pressure with primary care provider.
Discharge Plan
-
Patient Disposition: Home (Routine Discharge)
Discharge Diagnosis/Procedures: TIA
Condition: Fair
Diet: Low Cholesterol
Activity: As tolerated
Driving Restrictions: As prior to admission
Bathing Restrictions: OK to Shower
Referrals:
Delroy Stallworth MD [Family Provider, [facility]] - in one week
Prescriptions:
New
atorvastatin 40 mg Tablet
40 mg PO QPM Qty: 30 2RF
losartan 25 mg Tablet
25 mg PO DAILY Qty: 30 1RF
Continued
aspirin 81 mg Tablet
81 mg PO DAILY
Patient Comments:
occasionally uses
Discharge Orders:
Discharge Patient (As Directed); Ordered 11/04/24
Ordered By: Rolo Ceja
Discharge Date and Time
Print Language: SPANISH
[2024-11-07 13:45] LABS: Lyme Antibody Screen, EIA Negative (Negative)
== END 2024-11-04 17:18 | disposition home or self-care (01) ==
LOC: 3 WEST ACU 19:10
PROVIDERS: ADMITTING PHYSICIAN Hospitalist; CONSULT PHYSICIAN Psychiatry & Neurology Neurology; EMERGENCY PHYSICIAN Student in an Organized Health Care Education/Training Program; FAMILY PHYSICIAN Family Medicine
DX: G45.9 Transient cerebral ischemic attack, unspecified (principal); R53.1 Weakness; Z87.891 Personal history of nicotine dependence; Z79.82 Long term (current) use of aspirin; Z79.899 Other long term (current) drug therapy; E66.9 Obesity, unspecified; I10 Essential (primary) hypertension
CPT/HCPCS: 70450; 70496; 70498; 80048; 80053; 80061; 83036; 85025; 85027; 86618; 93005; 99285; G0378; Q9967